=== PATIENT | female | born 1990 | race Caucasian/White ===

== ENCOUNTER 2019-04-23 10:30 | Inpatient (IN) | payer OTHER ==
[~2019-04-23] VITALS: Ht 167.6 cm; Wt 68.0 kg
[~2019-04-23 10:30] MED LIST: CEFAZOLIN 2 GM IVPB PREMIX 50 ML IV ONE; LIDOCAINE MPF 2% 5mL VIAL INJ ONE; LR 1,000 ML IV.SOLN IV ONE; MORPHINE SULFATE 10 MG/ML VIAL IVP ONE; NS IRRIG SOLN 1000 ML IR ONE; OXYTOCIN 10 UNIT/ML VIAL IV ONE; PROPOFOL 200MG/ 20ML VIAL (DIPRIVAN) IV ONE
[2019-04-23] MEDS ORDERED: FLU VACC QS2019-20 36MOS UP/PF 60 MCG/0.5 ML SYRINGE I.M. PRN (11:05)
[2019-04-23] MEDS ORDERED: OXYTOCIN/0.9 % SODIUM CHLORIDE 1,000 ML IV SCH (11:34)
[2019-04-23] MEDS ORDERED: NALBUPHINE HCL 10 MG/ML AMP IVP PRN (11:45)
[2019-04-23 12:30] LABS: BASOPHILS % (AUTO) 0.5 % (0.0-2.0); EOSINOPHILS # (AUTO) 0.1 K/uL (0.0-0.4); EOSINOPHILS % (AUTO) 0.5 % (0.0-4.0); HEMATOCRIT 36.3 % (36-48); HEMOGLOBIN 12.5 g/dL (12.0-16.0); LYMPHOCYTES # (AUTO) 1.6 K/uL (1.0-5.5); LYMPHOCYTES % (AUTO) 15.5 % (20.5-51.5); MEAN CORPUSCULAR HEMOGLOBIN 33 pg (27-31); MEAN CORPUSCULAR HGB CONC 34 % (32-36); MEAN CORPUSCULAR VOLUME 96 fL (79.0-98.0); MONOCYTES # (AUTO) 0.7 K/uL (0.0-1.0); MONOCYTES % (AUTO) 7.1 % (1.7-9.3); NEUTROPHILS # (AUTO) 8.1 K/uL (1.8-7.7); NEUTROPHILS % (AUTO) 76.4 % (40.0-70.0); PLATELET COUNT (AUTO) 206 K/uL (130-430); RED CELL DISTRIBUTION WIDTH 13.3 % (9.0-15.0)
[2019-04-23 12:32] LABS: WHITE BLOOD COUNT (AUTO) 10.5 K/uL (4.8-10.8)
[2019-04-23 13:31] VITALS: BP_SYST 131
[2019-04-23 14:08] VITALS: BP_SYST 136
[2019-04-23] MEDS ORDERED: ROPIVACAINE HCL/PF 0.2% 0 ML ONE (15:59)
[2019-04-23] MEDS ORDERED: ROPIVACAINE HCL/PF 0.2% 200 ML ONE (16:00)
[2019-04-23] MEDS ORDERED: MORPHINE SULFATE 10 MG/ML VIAL IVP ONE (16:00)
[2019-04-23] MEDS ORDERED: MORPHINE SULFATE 10 MG/ML VIAL ONE (16:08)
[2019-04-23] MEDS ORDERED: fentaNYL CITRATE/PF 100 MCG/2 ML AMP ONE (16:22)
[2019-04-23] MEDS ORDERED: ROPIVACAINE HCL/PF 0.2% 100 ML EP SCH (16:34)
[2019-04-23] MEDS ORDERED: LR 500 ML IV ONE (16:34)
[2019-04-23] MEDS ORDERED: ePHEDrine sulfate 50 MG/ML VIAL IVP PRN (16:45)
[2019-04-23] MEDS ORDERED: FENT2mCg/mL-ROPIVA0.2%/NS EPID 200 ML EP SCH (16:45)
[2019-04-23] MEDS ORDERED: MORPHINE SULFATE 10 MG/ML VIAL IVP PRN (18:51)
[2019-04-23] MEDS: LR 1,000 ML IV SCH ×2 (19:27→22:50)
[2019-04-24] MEDS ORDERED: AMPICILLIN SODIUM 2 GM in NS 100 ML IV ONE (00:15)
[2019-04-24] MEDS ORDERED: AMPICILLIN SODIUM 2 GM VIAL ONE (00:34)
[2019-04-24] MEDS ORDERED: CEFAZOLIN 2 GM IVPB PREMIX 50 ML IV ONE ×2 (02:35)
[2019-04-24] MEDS ORDERED: LR 1,000 ML IV SCH ×2 (03:19→03:33)
[2019-04-24] MEDS ORDERED: MEPERIDINE HCL/PF 25 MG/ML DISP.SYRIN IVP PRN (03:30)
[2019-04-24] MEDS ORDERED: MORPHINE SULFATE 10MG/10ML PF AMP EP SCH (03:30)
[2019-04-24] MEDS ORDERED: DIPHENHYDRAMINE INJ 50 MG/ML VIAL IM PRN (03:30)
[2019-04-24] MEDS ORDERED: KETOROLAC TROMETHAMINE 30 MG VIAL IVP PRN (03:30)
[2019-04-24] MEDS ORDERED: ONDANSETRON HCL 4 MG/2 ML VIAL IVP PRN (03:30)
[2019-04-24] MEDS ORDERED: LANOLIN 7 GM OINT. TP PRN (03:45)
[2019-04-24] MEDS ORDERED: RHO(D) IMMUNE GLOBULIN/MALTOSE 1500 UNITS/1.3 ML (WINHRO) IM PRN (03:45)
[2019-04-24] MEDS ORDERED: OXYCODONE/ACETAMINOPHEN *10*mg/325 mg TABLET PO PRN (03:45)
[2019-04-24] MEDS ORDERED: ANUSOL 1 EA SUPP.RECT (PREPARATION H) RC PRN (03:45)
[2019-04-24] MEDS ORDERED: OXYCODONE/ACETAMINOPHEN 5-325 TABLET PO PRN (03:45)
[2019-04-24] MEDS ORDERED: BISACODYL 10 MG/SUPPOSITORY RC PRN (03:45)
[2019-04-24] MEDS ORDERED: HYDROcodone/ACETAMIN 5-325 MG TAB (NORCO/ VICODIN) PO PRN (03:45)
[2019-04-24] MEDS ORDERED: DIPH-TET-PERTUS Vaccine 0.5 ML VIAL (ADACEL) I.M. PRN (03:45)
[2019-04-24] MEDS ORDERED: TEMAZEPAM 15 MG CAPSULE PO PRN (03:45)
[2019-04-24] MEDS ORDERED: MEASLES,MUMPS&RUBELLA VACC/PF 12500 UNIT/0.5 ML VIAL SUBQ PRN (03:45)
[2019-04-24 03:52] VITALS: BP_SYST 110
[2019-04-24] MEDS: HYDROmorphone 1 MG INJ. 1 MG/ML AMPUL IVP PRN ×3 (04:15→05:08)
[2019-04-24] MEDS ORDERED: HYDROmorphone 1 MG INJ. 1 MG/ML AMPUL ONE (04:24)
[2019-04-24] MEDS: CEFAZOLIN 1 GM IVPB PREMIX 50 ML IV SCH ×3 (06:23→17:59)
[2019-04-24] MEDS: OXYTOCIN/0.9 % SODIUM CHLORIDE 1,000 ML IV SCH ×2 (07:30→14:32)
[2019-04-24] MEDS ORDERED: FLU VACC QS2019-20 36MOS UP/PF 60 MCG/0.5 ML SYRINGE I.M. PRN (08:00)
[2019-04-24 10:50] LABS: BASOPHILS % (AUTO) 0.2 % (0.0-2.0); EOSINOPHILS % (AUTO) 0.1 % (0.0-4.0); HEMATOCRIT 28.4 % (36-48); HEMOGLOBIN 9.7 g/dL (12.0-16.0); LYMPHOCYTES % (AUTO) 12.1 % (20.5-51.5); MEAN CORPUSCULAR HEMOGLOBIN 33 pg (27-31); MEAN CORPUSCULAR HGB CONC 34 % (32-36); MEAN CORPUSCULAR VOLUME 96 fL (79.0-98.0); MONOCYTES # (AUTO) 0.6 K/uL (0.0-1.0); MONOCYTES % (AUTO) 3.9 % (1.7-9.3); NEUTROPHILS # (AUTO) 13.5 K/uL (1.8-7.7); NEUTROPHILS % (AUTO) 83.7 % (40.0-70.0); PLATELET COUNT (AUTO) 153 K/uL (130-430); RED BLOOD CELL COUNT(AUTO) 2.97 MIL/uL (4.2-6.2); RED CELL DISTRIBUTION WIDTH 13.1 % (9.0-15.0); WHITE BLOOD COUNT (AUTO) 16.1 K/uL (4.8-10.8)
[2019-04-24] MEDS: KETOROLAC TROMETHAMINE 30 MG VIAL IVP SCH ×2 (12:36→18:01)
[2019-04-24] MEDS: SIMETHICONE 80 MG TAB.CHEW PO PRN ×2 (12:37→17:58)
[2019-04-24] MEDS: SENNOSIDES/DOCUSATE SODIUM 1 TAB TABLET(SENOKOT-S) PO PRN (17:58)
[2019-04-24] MEDS: DOCUSATE SODIUM 100 MG CAPSULE PO PRN (17:58)
[2019-04-25] MEDS: KETOROLAC TROMETHAMINE 30 MG VIAL IVP SCH (00:41)
[2019-04-25 08:07] LABS: HEMOGLOBIN 9.2 g/dL (12.0-16.0); MEAN CORPUSCULAR HEMOGLOBIN 33 pg (27-31); RED BLOOD CELL COUNT(AUTO) 2.76 MIL/uL (4.2-6.2); RED CELL DISTRIBUTION WIDTH 13.4 % (9.0-15.0)
[2019-04-25 08:27] LABS: HEMATOCRIT 26.7 % (36-48); MEAN CORPUSCULAR HGB CONC 34 % (32-36); MEAN CORPUSCULAR VOLUME 97 fL (79.0-98.0); WHITE BLOOD COUNT (AUTO) 25.7 K/uL (4.8-10.8)
[2019-04-25 08:28] LABS: PLATELET COUNT (AUTO) 155 K/uL (130-430)
[2019-04-25 10:17] LABS: ATYPICAL LYMPHOCYTES % 0 % (0-0); BAND % (MANUAL) 10 % (0-6); BASOPHILS % (MANUAL) 0 % (0-2); EOSINOPHILS % (MANUAL) 0 % (0-7); LYMPHOCYTES % (MANUAL) 7 % (20-46); MONOCYTES % (MANUAL) 5 % (0-11)
[2019-04-25] MEDS: IBUPROFEN 600 MG TABLET PO SCH ×2 (11:56→18:09)
[2019-04-25] MEDS: SIMETHICONE 80 MG TAB.CHEW PO PRN ×2 (11:56→18:09)
[2019-04-25] MEDS: DOCUSATE SODIUM 100 MG CAPSULE PO PRN (18:09)
[2019-04-25] MEDS: SENNOSIDES/DOCUSATE SODIUM 1 TAB TABLET(SENOKOT-S) PO PRN (18:09)
[2019-04-25] MEDS ORDERED: LIDOCAINE MPF 2% 5mL VIAL INJ ONE (19:05)
[2019-04-26] MEDS: IBUPROFEN 600 MG TABLET PO SCH ×3 (06:00→12:00)
== END 2019-04-26 19:30 | disposition home or self-care (01) | DRG 788 ==
LOC: SPU 10:30 → OBSVTOIN 11:03
PROVIDERS: ADMIT Specialist; ATTEND Specialist
PROC: 10D00Z1 Extraction of Products of Conception, Low, Open Approach (ICD-10-PCS; principal; 2019-04-24 02:30)
DX: O42.90 Premature rupture of membranes, unspecified as to length of time between rupture and onset of labor, unspecified weeks of gestation (principal); O62.2 Other uterine inertia; O77.9 Labor and delivery complicated by fetal stress, unspecified; O69.81X0 Labor and delivery complicated by cord around neck, without compression, not applicable or unspecified; Z37.0 Single live birth; Z3A.38 38 weeks gestation of pregnancy
CPT/HCPCS: 36415; 85007; 85025; 85027; 86592; 86886; 86900; 86901; 86920; 90715; 94760; G0378; J0290; J0690; J1170; J1885; J2001; J2175; J2270; J2590; J2704; J2795; J3010; J7120